=== PATIENT | female | born 1990 | race Caucasian/White ===

== ENCOUNTER 2021-03-26 09:57 | Emergency (ER) | payer MEDICAID, SELFPAY ==
[2021-03-26 10:27] LABS: Appearance Urine HAZY; Color Urine YELLOW; Glucose Urine UA NEG (NEG); Leukocyte Esterase Urine NEG (NEG); Nitrite Urine NEG (NEG); Urine Blood NEG (NEG); Urine Ketones NEG (NEG); Urine Protein TRACE MG/DL (NEG-TRACE)
[2021-03-26 10:31] LABS: UPreg QC Valid YES; Urine Pregnancy NEGATIVE (NEGATIVE)
[2021-03-26 10:41] LABS: RBC Urine 0 /HPF (0); WBC Urine 0 /HPF (0-4)
[2021-03-26 10:42] LABS: Squamous Epithelial Cell Urine 1+ /LPF
[2021-03-26 10:49] VITALS: BP 119/66; PULSE 83; RESP 16; TEMP 37.4; O2SAT 99; BMI 22.8
--- NOTE | 2021-03-26 11:04 | ED_ITS ---
HPI - General Adult General Chief complaint: General Medical Stated complaint: vaginal blood blisters & rectal pain Time Seen by Provider: 03/26/21 10:46 Source: patient Limitations: no limitations History of Present Illness HPI narrative: Patient presents to the ER complaining of question blood blisters to the inner aspect of the vaginal lips. Patient also having some rectal pain as 02/04. Patient does have a history of hemorrhoids in the past. Patient denies any past history of STDs or vaginal discharge at this time. Patient has had some skin lesions in that area secondary to shaving in the past which she has not done recently. Symptoms mild to moderate. Patient had a bowel movement this morning. Patient did have rectal pain after bowel movement Related Data Previous Rx's Medication Instructions Recorded docusate sodium 100 mg capsule 100 mg PO BID #30 cap 03/26/21 (Dulcolax Stool Softener (docusate)) Allergies Allergy/AdvReac Type Severity Reaction Status Date / Time No Known Allergies Allergy Verified 03/26/21 10:49 Review of Systems Review of Systems: Constitutional : No Weight loss, No Fever, No Chills Cardiovascular : No Chest Pain, No SOB, Respiratory : No Cough, No Sputum, No Wheezing, No Smoke Exposure, No Dyspnea Gastrointestinal : No Nausea, No Vomiting, No Diarrhea, No Constipation, rectal pain status post bowel movement Genitourinary : Red skin lesion external vaginal area Musculoskeletal : No joint pain, No Myalgias, No Joint SwellingSkin : No Skin Lesions, No rash Neuro : No Weakness, No Numbness, No Paresthesias, No Loss of Consciousness, No Dizziness, No Headache Heme/Lymph: No Bruising, No Bleeding,No Lymphadenopathy Endocrine : No Polyuria, No Polydipsia, No Temperature Intolerance [facility] Past Medical History Attestation statement: The following information was validated with the patient. Surgical History H/O hemorrhoidectomy Social History Social History Advance Directives: No Patient : No Physical Exam Vital Signs: Vital Signs: Last Vital Signs Temp 99.3 F 03/26/21 10:49 Pulse 83 03/26/21 10:49 Resp 16 03/26/21 10:49 BP 119/66 03/26/21 10:49 Pulse Ox 99 03/26/21 10:49 Body Mass Index 22.8 vital signs have been reviewed as normal and appeared to be correct. Blood pressure normal. Heart rate normal. Respiration rate normal. Temperature normal. Oxygen saturation normal. Appearance: Alert. Oriented X3. No acute distress. Head: Normal external exam. Normocephalic. Atraumatic. Eyes: PERRLA. EOMI. ENT: Pharynx normal. Uvula midline. Moist mucous membranes. Neck: Soft full range of motion, no JVD CVS: Heart regular rate and rhythm no murmurs and rubs Respiratory: Breath sounds are clear to auscultation bilaterally. No accessory muscle use noted. Abdomen: Soft nontender no rebound or guarding positive bowel sounds. Rectal exam no masses palpated no obvious external and internal hemorrhoids palpated. Heme-negative QC positive : External vaginal exam question very small hemangioma externally no ulcers. The area is nontender Back: No CVA tenderness. Full range of motion noted. Skin: Skin warm and dry. Normal skin color. Normal skin turgor. No rashes/lesions/lacerations noted. Extremities: No lower extremity edema. Extremities exhibit normal range of motion. Extremities nontender. Neuro: Oriented X 3. No motor deficit. No sensory deficit. Reflexes normal. Course Course Course Narrative: Vaginal hemangioma Rectal pain External hemorrhoid Internal hemorrhoid Constipation Patient denies any sexual exposure or vaginal discharge at this time does not think she needs a pelvic exam as she will be able to follow-up. Lesions in the pelvic area appeared to be hemangiomas follow-up with OBGYN is recommended. Rectal exam was negative. Plan to start stool softeners at this time. Patient instructed on the importance of follow-up. Patient just states the skin lesions are very ugly wants them to go away. Medical Decision Making Lab Data Labs: Lab Results 03/26/21 03/26/21 Range/Units 10:15 10:15 Urine Color YELLOW Urine Appearance HAZY Urine pH 7.0 (5.0-8.0) Ur Specific [place] 1.010 (1.005-1.025) Urine Protein TRACE (NEG-TRACE) MG/DL Urine Glucose (UA) NEG (NEG) MG/DL Urine Ketones NEG (NEG) MG/DL Urine Blood NEG (NEG) Urine Nitrite NEG (NEG) Ur Leukocyte Esterase NEG (NEG) Urine RBC 0 (0) /HPF Urine WBC 0 (0-4) /HPF Ur Squamous Epith Cells 1+ /LPF Urine Bacteria NONE /LPF Urine Test NEGATIVE (NEGATIVE) Discharge Plan Discharge Clinical Impression: Anal or rectal pain Patient Disposition: Home, Self-Care Instructions: Rectal Pain (ED) Additional Instructions: The skin lesions are likely A?hemangioma?of the?skin?is an abnormal buildup of blood vessels on or under the surface of the?skin. It is recommended you follow-up with OBGYN. Use stool softeners as directed Your exam showed no signs of internal or external hemorrhoids. Prescriptions: New docusate sodium [Dulcolax Stool Softener (dss)] 100 mg capsule 100 mg PO BID Qty: 30 RF: 0 Interventions: ED Discharge Assessment Last Done: 03/26/21 11:34 Discharge Date/Time: 03/26/21 11:35
== END 2021-03-26 11:35 | disposition home or self-care (01) ==
PROVIDERS: Emergency Provider Emergency Medicine Emergency Medical Services
DX: K62.89 Other specified diseases of anus and rectum (principal); Z79.899 Other long term (current) drug therapy
CPT/HCPCS: 81001; 81025; 99283; 99284